=== PATIENT | female | born 1990 | race African-American/Black ===

== ENCOUNTER 2021-12-02 19:55 | Emergency (ER) | payer OTHER ==
[~2021-12-02] VITALS: Ht 160 cm; Wt 80.3 kg
[2021-12-02] MEDS ORDERED: PRENA1 TRUE CO1 EACH PO (20:12)
[2021-12-02] MEDS ORDERED: MACROBID 100 M100 MG PO (23:44)
== END 2021-12-03 00:34 | disposition home or self-care (01) ==
LOC: ER 19:55
DX: O23.41 Unspecified infection of urinary tract in pregnancy, first trimester (principal); N39.0 Urinary tract infection, site not specified; Z3A.01 Less than 8 weeks gestation of pregnancy; R30.0 Dysuria

== ENCOUNTER 2022-07-15 13:15 | Inpatient (IN) | payer OTHER ==
[~2022-07-15] VITALS: Ht 157.5 cm; Wt 97.5 kg
[~2022-07-15 13:15] MED LIST: MACROBID 100 M100 MG PO; PRENA1 TRUE CO1 EACH PO
[2022-07-25] MEDS ORDERED: PRENATAL TABLE1 EAC1 PO (06:52)
== END 2022-07-28 14:25 | disposition home or self-care (01) | DRG 788 ==
LOC: OB/GYN 07-23 13:30 → LDR 07-25 05:32 → OB/GYN 07-25 05:32 → O/R 07-25 15:00 → OB/GYN 07-25 16:37
PROVIDERS: ADMIT Specialist; ATTEND Specialist
PROC: 4A1HXCZ Monitoring of Products of Conception, Cardiac Rate, External Approach (ICD-10-PCS; 2022-07-25)
PROC: 3E033VJ Introduction of Other Hormone into Peripheral Vein, Percutaneous Approach (ICD-10-PCS; 2022-07-25)
PROC: 3E0P7VZ Introduction of Hormone into Female Reproductive, Via Natural or Artificial Opening (ICD-10-PCS; 2022-07-25)
PROC: 10D00Z1 Extraction of Products of Conception, Low, Open Approach (ICD-10-PCS; principal; 2022-07-25 15:00)
DX: O61.0 Failed medical induction of labor (principal); O36.63X0 Maternal care for excessive fetal growth, third trimester, not applicable or unspecified; O62.0 Primary inadequate contractions; O99.824 Streptococcus B carrier state complicating childbirth; Z3A.40 40 weeks gestation of pregnancy; Z37.0 Single live birth; Z20.822 Contact with and (suspected) exposure to COVID-19